=== PATIENT | male | born 1950 | race African-American/Black ===

== ENCOUNTER → 2016-03-31 | Outpatient (CLI) | payer BC ==
[~2016-03-31] MED LIST: HYDC25 PO; LISI40TA PO; METH2.5T PO; METO50TA16 PO; MULT-506 PO; POLY335040 PO; SIMV20TA2 PO; WARF10TA PO; WARF2.5T8 PO; [UNRECOGNIZED DRUG - CODE] PO
--- NOTE | 2016-03-31 11:26 | DIAGNOSTIC IMAGING REPORT ---
ABDOMINAL AORTIC ULTRASOUND CLINICAL HISTORY: Aortic aneurysm. COMPARISON STUDY: 11/16/2012 FINDINGS: The proximal aorta measures 26 x 26 mm. The midabdominal aorta measures 19 x 19 mm. There is a fusiform aneurysm of the infrarenal abdominal aorta measuring 3.3 cm, x 3.1 cm in maximal diameter. There is mild aneurysmal dilatation of the right common iliac artery which measures 21 mm in diameter. The left common iliac artery measures 14 mm in diameter. IMPRESSION: Stable infrarenal abdominal aortic aneurysm measuring 33 mm in maximal diameter. Stable right common iliac artery aneurysm measuring 21 mm in diameter. Electronically signed by: Chago Martin M.D. 03/31/2016 11:24 AM Dictated Date/Time: 03/31/2016 11:21 AM
== END | disposition home or self-care (01) ==
LOC: C.ULTR 10:23
DX: I71.4 Abdominal aortic aneurysm, without rupture (principal); I72.3 Aneurysm of iliac artery

== ENCOUNTER → 2016-06-27 | Outpatient (CLI) | payer BC ==
[2016-06-27 09:42] LABS: BASO % 0.3 %; BASO ABS # 0.02 K/uL (0-0.2); COMPLETE YES; EOS % 4.6 %; HEMATOCRIT 38.4 % (42-52); IG% 0.1 %; LYMPH % 42.7 %; LYMPH ABS # 2.85 K/uL (1.2-3.4); MEAN CELL VOLUME 91.9 fL (80-100); MEAN CORPUSCULAR HEMOGLOBIN 31.6 pg (25-34); MEAN CORPUSCULAR HGB CONC 34.4 g/dl (32-36); MEAN PLATELET VOLUME 10.4 fL (7.4-10.4); MONO % 7.2 %; NEUT % 45.1 %; PLATELET COUNT 177 K/uL (130-400); RED BLOOD COUNT 4.18 M/uL (4.7-6.1); WHITE BLOOD COUNT 6.68 K/uL (4.8-10.8)
[2016-06-27 10:19] LABS: ALT/SGPT 28 U/L (12-78); AST/SGOT 18 U/L (15-37); BLOOD UREA NITROGEN 16 mg/dl (7-18); BUN/CREATININE RATIO 16.4 (10-20); CARBON DIOXIDE 31 mmol/L (21-32); CHLORIDE 107 mmol/L (98-107); GLUCOSE 94 mg/dl (70-99); SODIUM 143 mmol/L (136-145)
[2016-06-27 10:24] LABS: CHOLESTEROL 139 mg/dl (0-200); CHOLESTEROL/HDL RATIO 2.4; HDL CHOLESTEROL 57 mg/dl; LDL CHOLESTEROL CALCULATED 59 mg/dl; TRIGLYCERIDES 116 mg/dl (0-150); VERY LOW DENSITY LIPOPROT CALC 23 mg/dl
== END | disposition home or self-care (01) ==
LOC: C.LAB 08:02
DX: M19.90 Unspecified osteoarthritis, unspecified site (principal); E78.5 Hyperlipidemia, unspecified

== ENCOUNTER → 2016-12-18 | Outpatient (CLI) | payer BC ==
[2016-12-18 16:16] LABS: MEAN CELL VOLUME 92.6 fL (80-100); MEAN CORPUSCULAR HEMOGLOBIN 29.5 pg (25-34); MEAN CORPUSCULAR HGB CONC 31.8 g/dl (32-36); MEAN PLATELET VOLUME 10.1 fL (7.4-10.4); PLATELET COUNT 169 K/uL (130-400); RED BLOOD COUNT 4.21 M/uL (4.7-6.1); WHITE BLOOD COUNT 7.03 K/uL (4.8-10.8)
[2016-12-18 16:30] LABS: ALT/SGPT 14 U/L (12-78); AST/SGOT 15 U/L (15-37); BLOOD UREA NITROGEN 14 mg/dl (7-18); BUN/CREATININE RATIO 12.6 (10-20); CALCIUM 8.9 mg/dl (8.5-10.1); CARBON DIOXIDE 27 mmol/L (21-32); CHLORIDE 106 mmol/L (98-107); GLUCOSE 81 mg/dl (70-99); POTASSIUM 3.9 mmol/L (3.5-5.1); SODIUM 141 mmol/L (136-145)
[2016-12-18 19:58] LABS: COMPLETE YES; ECHINOCYTES 1+; EOSINOPHIL % 3.5 %; LYMPH ABS # 2.99 K/uL (1.2-3.4); LYMPHOCYTE % 42.5 %; VARIANT LYM ABS # 1.65 K/uL; VARIANT LYMPHOCYTE % 23.5 %
[2016-12-19 07:11] LABS: ESTIMATED AVERAGE GLUCOSE 128 mg/dl; HA1C FLAG Normal (Normal)
== END | disposition home or self-care (01) ==
LOC: C.LAB 14:08
DX: E78.5 Hyperlipidemia, unspecified (principal); M19.90 Unspecified osteoarthritis, unspecified site; R73.02 Impaired glucose tolerance (oral); Z51.81 Encounter for therapeutic drug level monitoring; Z79.01 Long term (current) use of anticoagulants; Z86.73 Personal history of transient ischemic attack (TIA), and cerebral infarction without residual deficits

== ENCOUNTER → 2016-12-22 | Outpatient (CLI) | payer BC ==
--- NOTE | 2016-12-22 16:26 | ECHOCARDIOGRAM REPORT ---
*NOTICE TO RECEIVING DEMOCRAT AGENCY This information is strictly Confidential and protected under [place] law. [place] law prohibits you from making any further disclosure of this information unless further disclosure is expressly permitted by the written consent of the person to whom it pertains or is authorized by law. A general authorization for the release of medical or other information is not sufficient for this purpose. Hospital accepts no responsibility if the information is made available to any other person, INCLUDING THE PATIENT. Interpretation Summary * Name: MEERA SMILEY Study Date: 12/22/2016 01:13 PM BP: 127/78 mmHg * Patient Location: [facility] HR: 57 * : 1950 (M/d/yyyy) Gender: Male Height: 72 in * Age: 66 yrs Ethnicity: AA Weight: 168 lb * Ordering Physician: Walker Boo * Referring Physician: Walker Boo D.O. * Performed By: Joo Barron RCS * * Reason For Study: CAD, Dialated Thoracic Aorta, Mitral Regurge * BSA: 2.0 m2 * Normal biventricular systolic function. * Trace aortic and mitral regurgitation. * Mild tricuspid regurgitation. * Normal estimated right ventricular systolic pressure. * Mild aortic root and ascending aortic dilatation. * -- Conclusions -- * Aortic valve sclerosis mild, without significant aortic valvular stenosis. Procedure Details * A complete two-dimensional transthoracic echocardiogram was performed (2D, M-mode, Doppler and color flow Doppler). Left Ventricle * The left ventricle is normal in size. * There is normal left ventricular wall thickness. * Ejection Fraction = 60-65%. * The left ventricular wall motion is normal. Right Ventricle * The right ventricle is normal in size and function. Atria * The left atrial size is normal. * Right atrial size is normal. * No ASD detected; PFO is not assessed. Mitral Valve * There is mild mitral annular calcification. * There is no mitral valve stenosis. * There is trace mitral regurgitation. Tricuspid Valve * The tricuspid valve is normal. * There is no tricuspid stenosis. * There is mild tricuspid regurgitation. * Right ventricular systolic pressure is normal. Aortic Valve * The aortic valve is trileaflet. * The aortic valve opens well. * Aortic valve sclerosis mild, without significant aortic valvular stenosis. * Trace aortic regurgitation. Pulmonic Valve * The pulmonic valve is not well seen, but is grossly normal. * There is no pulmonic valvular stenosis. * There is no pulmonic valvular regurgitation. Great Vessels * Mild aortic root dilatation. * Mildly dilated ascending aorta. Pericardium/Pleural * There is no pericardial effusion. Great Vessels * Normal inferior vena cava diameter and respiratory variation suggests normal central venous pressure. MMode 2D Measurements and Calculations IVSd 1.0 cm IVSs 1.2 cm LVIDd 4.2 cm LVIDs 2.7 cm LVPWd 0.94 cm LVPWs 1.2 cm IVS/LVPW 1.1 FS 35.4 % EDV(Teich) 77.5 ml ESV(Teich) 26.9 ml EF(Teich) 65.3 % EDV(cubed) 72.9 ml ESV(cubed) 19.6 ml EF(cubed) 73.1 % % IVS thick 10.8 % % LVPW thick 28.8 % LV mass(C)d 134.4 grams LV mass(C)dI 67.9 grams/m\S\2 LV mass(C)s 92.3 grams LV mass(C)sI 46.6 grams/m\S\2 SV(Teich) 50.6 ml SI(Teich) 25.6 ml/m\S\2 SV(cubed) 53.3 ml SI(cubed) 26.9 ml/m\S\2 Ao root diam 4.1 cm Ao root area 13.2 cm\S\2 ACS 1.4 cm LA dimension 3.3 cm asc Aorta Diam 3.7 cm LA/Ao 0.82 EDV(MOD-sp4) 131.5 ml ESV(MOD-sp4) 56.0 ml EF(MOD-sp4) 57.4 % EDV(MOD-sp2) 156.7 ml ESV(MOD-sp2) 78.6 ml EF(MOD-sp2) 49.8 % SV(MOD-sp4) 75.5 ml SI(MOD-sp4) 38.2 ml/m\S\2 SV(MOD-sp2) 78.1 ml SI(MOD-sp2) 39.5 ml/m\S\2 Doppler Measurements and Calculations MV E max arminda 76.8 cm/sec MV A max arminda 61.6 cm/sec MV E/A 1.2 MV P1/2t max arminda 75.4 cm/sec MV P1/2t 93.3 msec MVA(P1/2t) 2.4 cm\S\2 MV dec slope 236.7 cm/sec\S\2 MV dec time 0.20 sec Ao V2 max 117.6 cm/sec Ao max PG 5.5 mmHg Ao max PG (full) 1.7 mmHg LV V1 max PG 3.8 mmHg LV V1 max 97.6 cm/sec PA V2 max 81.7 cm/sec PA max PG 2.7 mmHg TR max arminda 221.7 cm/sec
== END | disposition home or self-care (01) ==
LOC: C.CPL 12:39
DX: I25.10 Atherosclerotic heart disease of native coronary artery without angina pectoris (principal); I34.0 Nonrheumatic mitral (valve) insufficiency; I71.2 Thoracic aortic aneurysm, without rupture

== ENCOUNTER 2023-06-17 07:37 | Inpatient (IN) ==
--- NOTE | 2023-05-26 10:15 | PAT Medication Instructions ---
Medication Instructions Date of Service May 26, 2023 Home Medications Medication Instructions Recorded morphine 15 mg immediate release 15 mg PO Q4H #120 tabs 04/15/23 tablet warfarin 10 mg tablet See Rx Instructions PO UD #90 tabs 04/20/23 warfarin 2.5 mg tablet See Rx Instructions PO UD #30 tabs 04/20/23 atorvastatin 20 mg tablet 20 mg PO DAILY #90 tabs 05/08/23 lisinopril 20 mg tablet 20 mg PO DAILY #90 tabs 05/08/23 metoprolol tartrate 50 mg tablet 50 mg PO DAILY #90 tabs 05/08/23 (Lopressor) polyethylene glycol 3350 17 gram oral powder packet (Miralax) 17 gm PO 3XWK Medical Marijuana (CBD) 1 dose inhalation TID PRN diclofenac sodium 1 % topical gel (Voltaren) 2 gm topical QID [id number]-kd-mqoad 300 mcg-K 60 mcg-lycop 600 mcg-lutein 300 mcg tablet (Centrum Silver Men) 1 tab PO DAILY inulin 2 gram chewable tablet (Fiber Gummies) 2 g PO DAILY morphine 15 mg immediate release tablet 15 mg PO Q4H warfarin 10 mg tablet See Rx Instructions PO UD warfarin 2.5 mg tablet See Rx Instructions PO UD linaclotide 72 mcg capsule (Linzess) See Rx Instructions PO HS atorvastatin 20 mg tablet 20 mg PO DAILY lisinopril 20 mg tablet 20 mg PO DAILY metoprolol tartrate 50 mg tablet (Lopressor) 50 mg PO DAILY Continue as directed atorvastatin 20 mg tablet 20 mg PO DAILY metoprolol tartrate 50 mg tablet (Lopressor) 50 mg PO DAILY ASK your prescriber and surgeon warfarin 10 mg tablet See Rx Instructions PO UD warfarin 2.5 mg tablet See Rx Instructions PO UD STOP taking 24 hours before surgery diclofenac sodium 1 % topical gel (Voltaren) 2 gm topical QID DO NOT take the morning of surgery polyethylene glycol 3350 17 gram oral powder packet (Miralax) 17 gm PO 3XWK Medical Marijuana (CBD) 1 dose inhalation TID PRN khwfqkun-qc-ubjth 300 mcg-K 60 mcg-lycop 600 mcg-lutein 300 mcg tablet (Centrum Silver Men) 1 tab PO DAILY inulin 2 gram chewable tablet (Fiber Gummies) 2 g PO DAILY lisinopril 20 mg tablet 20 mg PO DAILY Take morning of surgery With a small sip of water, OTHERWISE NOTHING TO EAT OR DRINK AFTER MIDNIGHT: morphine 15 mg immediate release tablet 15 mg PO Q4H Take evening before surgery Medical Marijuana (CBD) 1 dose inhalation TID PRN(if needed) morphine 15 mg immediate release tablet 15 mg PO Q4H linaclotide 72 mcg capsule (Linzess) See Rx Instructions PO HS Other Notes If you have any questions please call us at [phone] or [phone] or [phone] or [phone]
--- NOTE | 2023-05-28 12:05 | Anesthesiology Consultation ---
Date of Service May 28, 2023 Assessment & Plan (1) Encounter for pre-operative examination: Plan - check coags STAT am DOS. - Case discussed in detail with Dr. Cornelius who advised nothing additional needed prior to surgery from his standpoint. - cardiology office visit 01/05/23 [place]: "...Reported history myocardial infarction 1986. no evidence of wall motion abnormalities on most recent echo. Electrocardiogram without evidence of infarct. At this time he has no anginal or anginal equivalent symptoms. Stable exercise tolerance and stamina. LV ejection fraction is normal. No signs or symptoms of heart failure. Asymptomatic ventricular ectopy. Right bundle branch block and left anterior fascicular block. No symptoms suggestive of high-degree block or significant conduction abnormalities...Continue CAD risk factor modification. The patient is aware of the health risks associated with continued cigarette smoking...increase metoprolol tartrate to 50 mg b.i.d...Cardiology clinic follow-up in 1 year. If the patient develops any anginal or anginal equivalent symptoms would then proceed to repeat pharmacologic stress test. If any signs or symptoms of heart failure would perform repeat echocardiogram..." Chart Review Chart Review: Acceptable Risk for Surgery and Patient seen in Pre Admission Testing Teaching & Discussion Pre-Anesthesia Teaching/Discussion Notes: Instructed NPO after midnight before surgery, except medications with 15 cc of water. Medication instructions provided according to the PAT guidelines. History Surgery Operation Date: 06/17/23 12:30 Proposed Procedures p Percutaneous Endovascular Repair with Iliac Branch Device - José Miguel Watson MD Height/Weight Height: 5 ft 11.5 in Weight: 78.2 kg Allergies Allergy/AdvReac Type Severity Reaction Status Date / Time iodine Allergy Intermediate Hives/swell Verified 05/22/23 09:37 ing shellfish derived Allergy Intermediate Hives/swell Verified 05/22/23 09:37 ing carbamazepine Allergy Unknown unsure Verified 05/22/23 09:36 Medications Home Medications Medication Instructions Recorded Confirmed Last Taken polyethylene glycol 3350 17 gram 17 gm PO 3XWK 12/07/17 05/22/23 Unknown oral powder packet (Miralax) Medical Marijuana (CBD) 1 dose inhalation TID PRN pain 05/13/18 05/22/23 03/04/22 diclofenac sodium 1 % topical gel 2 gm topical QID 09/21/19 05/22/23 Unknown (Voltaren) akcxbagz-wc-foicr 300 mcg-K 60 1 tab PO DAILY 07/08/22 05/22/23 Unknown mcg-lycop 600 mcg-lutein 300 mcg tablet (Centrum Silver Men) inulin 2 gram chewable tablet 2 g PO DAILY 07/29/22 05/22/23 Unknown (Fiber Gummies) morphine 15 mg immediate release 15 mg PO Q4H #120 tabs 04/15/23 05/22/23 Unknown tablet warfarin 10 mg tablet See Rx Instructions PO UD #90 tabs 04/20/23 05/22/23 Unknown warfarin 2.5 mg tablet See Rx Instructions PO UD #30 tabs 04/20/23 05/22/23 Unknown linaclotide 72 mcg capsule See Rx Instructions PO HS 05/07/23 05/22/23 Unknown (Linzess) atorvastatin 20 mg tablet 20 mg PO DAILY #90 tabs 05/08/23 05/22/23 Unknown lisinopril 20 mg tablet 20 mg PO DAILY #90 tabs 05/08/23 05/22/23 Unknown metoprolol tartrate 50 mg tablet 50 mg PO DAILY #90 tabs 05/08/23 05/22/23 Unknown (Lopressor) Past Medical History Medical History (Updated 05/28/23 @ 14:20 by Julia Dewitt PA-C) AAA (abdominal aortic aneurysm) without rupture 5.5 x 5.1 cm Affective disorder Arthritis Chronic pain Coronary artery disease follows with [place] cardiology 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 Exercise / Class Metabolic Activity II 4-5 Yardwork/Stairs/Walk up hill (denies chest discomfort or shortness of breath with 1 FOS) Past Family History Family History Aunt Breast cancer x2-maternal Mother Hypertension Myocardial infarction Other No family history of adverse response to anesthesia Denies family history of Ovarian cancer Prostate cancer Diabetes Lung cancer Colorectal cancer Stroke Past Surgical History Surgical History (Updated 05/28/23 @ 14:19 by Julia Dewitt PA-C) History of back surgery lumbar fusion History of colonoscopy History of esophagogastroduodenoscopy (EGD) History of tooth extraction History of total knee replacement RT Past Anesthesia History No Hx of Anesthesia Complications and No Family Hx of Anesthesia Complications History of PONV No Hx of PONV and No Hx of Motion Sickness Social History Smoking Status: Current every day smoker tobacco type: cigarettes Smoking cigarettes per day: 8 CIG DAILY>ADVISED Do You Dip or Chew Tobacco: No Hx Alcohol Use: No Hx Substance Use: Yes (ONLY MEDICAL MARIJUANA- advised) substance use type: marijuana Last Used Substance Other:: 05/21/23 Review of Systems Patient denies chest pain, shortness of breath, dyspnea on exertion, snoring, witnessed apneas, reflux, fever, chills, cough, wheezing, or palpitations. Physical Exam Vital Signs Vitals BP 117/72 P 74 TEMP 98.2 SP02 97% on RA RESP 18 Physical Patient resting comfortably in chair in no acute distress, alert and oriented, responding appropriately throughout visit Full cervical extension range of motion without pain TMD 3.5 finger breadths Mallampati Score 2 Dentition: intact, denies chipped or loose teeth, caps/crowns, implants or bridges Lungs: normal respiratory effort. Good air movement, clear throughout to auscultation, no adventitious breath sounds Cardiac: regular rate and rhythm, no murmurs noted Carotid arteries: negative bruit bilat Lab Results Anesthesia Preop Results Results Anesthesia Widget: WBC 5.05 K/ul (4.8-10.8) 05/28/23 Hgb 13.4 g/dl (14.0-18.0) L 05/28/23 Hct 40.1 % (42.0-52.0) L 05/28/23 Plt 100 K/uL (130-400) L 05/28/23 Na 141 mmol/L (136-145) 05/07/23 K 3.8 mmol/L (3.5-5.1) 05/07/23 Cl 108 mmol/L (98-107) H 05/07/23 CO2 28 mmol/L (21-32) 05/07/23 BUN 16 mg/dl (6-23) 05/07/23 Creat 1.14 mg/dl (0.6-1.4) 05/07/23 Glucose Level 91 mg/dl (70-99(Fasting)) 05/07/23 PT 32.4 Seconds (9.0-12.0) H 05/28/23 PTT 46 Seconds (21-31) H 05/28/23 INR 3.2 (0.9-1.1) H 05/28/23 TSH 2.009 uIu/ml (0.300-4.500) 05/07/23 HA1c 6.3 % (4.5-5.6) H 05/07/23 Blood Type A Positive 05/28/23 Antibody Screen NEGATIVE 05/28/23 Testing Laboratory Results Coags discussed with Dr. Cornelius who advised relaying them to anticoagulation clinic for continuity of care and otherwise checking am DOS as standard procedure. Daylin Francis confirmed review of results and that their department will follow-up with patient. Electrocardiogram Date: 05/28/23 Sinus rhythm with frequent PVCs, rate 64 bpm Left axis deviation Incomplete RBBB T wave inversion in inferior leads, consider ischemia Inferior T wave changes also demonstrated on 12/04/22 EKG Echocardiogram Date: 12/04/21 EF 60-65% No LV regional wall motion abnormalities noted Mild cLVH Mild mitral regurgitation Aortic root and proximal ascending aorta are normal sized Other Testing Abdomen pelvis CTA 05/06/23 1. A 5.5 x 5.1 cm infrarenal abdominal aortic aneurysm as described above. 2. This extends into the right common iliac artery aneurysm which measures 4 cm in diameter. 3. Additional findings as described above. Low dose lung CT 12/08/22 1. No change in several small pulmonary nodules, measuring up to 5 mm, since CT of February 03, 2022. These are likely benign and can be assessed on routine annual screening CT. 2. No new pulmonary nodules. 3. Emphysema. Head and neck CTA 04/19/21 1. No acute intracranial hemorrhage, evidence of acute territorial infarction, or other acute intracranial disease process. 2. No occlusion, hemodynamically significant stenosis, aneurysm, dissection, or arteriovenous malformation in the major intracranial arteries. 3. No occlusion, hemodynamically significant stenosis, or dissection in the major cervical arteries.
--- NOTE | 2023-06-16 12:26 | History & Physical Report ---
Date of Service June 16, 2023 Assessment & Plan (1) Abdominal aortic aneurysm: Plan: Patient is admitted for endovascular repair of his abdominal aortic and iliac artery aneurysms. I have discussed the risks options and benefits of the procedure with the patient. The patient understands the risks options and benefits and agrees to the procedure. History of Present Illness Chief Complaint: AAA and iliac artery aneurysm Primary Care Provider: ROQUE Bee Mr. Schofield is a 73-year-old gentleman who we have seen in the past for abdominal aortic aneurysm as well as iliac aneurysms. He is doing well at this time he is ambulating without any claudication. He has no symptoms of cerebrovascular sufficiency he has no abdominal complaints. His ultrasound showed a significant increase in size. 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 They are amenable to endoleak vascular repair Allergies Allergy/AdvReac Type Severity Reaction Status Date / Time iodine Allergy Intermediate Hives/swell Verified 05/22/23 09:37 ing shellfish derived Allergy Intermediate Hives/swell Verified 05/22/23 09:37 ing carbamazepine Allergy Unknown unsure Verified 05/22/23 09:36 Home Medications Medication Instructions Recorded Confirmed Type polyethylene glycol 3350 17 gram 17 gm PO 3XWK 12/07/17 06/04/23 History oral powder packet (Miralax) Medical Marijuana (CBD) 1 dose inhalation TID PRN pain 05/13/18 06/04/23 History diclofenac sodium 1 % topical gel 2 gm topical QID 09/21/19 06/04/23 History (Voltaren) mwfbisqv-dg-qjyfh 300 mcg-K 60 1 tab PO DAILY 07/08/22 06/04/23 History mcg-lycop 600 mcg-lutein 300 mcg tablet (Centrum Silver Men) inulin 2 gram chewable tablet 2 g PO DAILY 07/29/22 06/04/23 History (Fiber Gummies) morphine 15 mg immediate release 15 mg PO Q4H #120 tabs 04/15/23 06/04/23 Rx tablet warfarin 10 mg tablet See Rx Instructions PO UD #90 tabs 04/20/23 06/04/23 Rx warfarin 2.5 mg tablet See Rx Instructions PO UD #30 tabs 04/20/23 06/04/23 Rx linaclotide 72 mcg capsule See Rx Instructions PO HS 05/07/23 06/04/23 History (Linzess) atorvastatin 20 mg tablet 20 mg PO DAILY #90 tabs 05/08/23 06/04/23 Rx lisinopril 20 mg tablet 20 mg PO DAILY #90 tabs 05/08/23 06/04/23 Rx metoprolol tartrate 50 mg tablet 50 mg PO DAILY #90 tabs 05/08/23 06/04/23 Rx (Lopressor) Past Med/Surg History Medical History Pre-diabetes History of colon polyps Arthritis Medical marijuana use Myocardial Infarction 1989>no intervention per pt Hyperlipidemia History of adenomatous polyp of colon Affective disorder Opioid dependence Chronic pain AAA (abdominal aortic aneurysm) without rupture 5.5 x 5.1 cm Tobacco dependence Hypertension controlled, stable per pt Coronary artery disease follows with [place] [facility] CVA (cerebral vascular accident) X 2 "MILD"> (denies residual effects Current use of roasterman anticoagulation Surgical History History of esophagogastroduodenoscopy (EGD) History of total knee replacement RT History of colonoscopy History of tooth extraction History of back surgery lumbar fusion Family History Aunt Breast cancer x2-maternal Mother Hypertension Myocardial infarction Other No family history of adverse response to anesthesia Denies family history of Ovarian cancer Prostate cancer Diabetes Lung cancer Colorectal cancer Stroke Social History Smoking Status: Current every day smoker Tobacco Type: Cigarettes Age Started Using Tobacco: 22; packs per day: 1; Cigarettes Per Day: 8 CIG DAILY>ADVISED; Second Hand Exposure: Yes (in the past); Do You Dip or Chew Tobacco: No; Tobacco Cessation Education Requested by Patient: No Hx Alcohol Use: No Hx Substance Use: Yes (ONLY MEDICAL MARIJUANA- advised) Last Used Substance Other:: 05/21/23 Preferred Language: Pashto Communication Ability: Effective Visual Impairment: Limited Hearing Ability: Normal 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: No Beliefs That Will Affect Care: None marital status: Current Living Situation: Spouse current occupational status: retired How many Children do You have: 2 Other Information That Helps Us Care for You: No Feels Safe at Home: Yes Safety Concerns: Feels Safe At This Time Childhood Exposure to Second-Hand Smoke: No caffeine: Yes Dental Care, Regularly: No Physical Activity Frequency: Daily Physical Activity Frequency Comment: walking Seatbelt Use: always Sunscreen Use: No Assistive Devices: Denture - Upper and Denture - Lower Review of Systems All systems reviewed & are unremarkable except as noted in HPI & below Physical Exam Constitutional: WD/WN, vitals as above Respiratory: normal respiratory effort, lungs clear to auscultation Cardiovascular: RRR, no murmur, no edema Vessels: normal peripheral pulses Extremities: normal capillary refill Gastrointestinal (Abdomen): normal bowel sounds, soft, nontender, no hepatosplenomegaly Percussion/Palpation: + abdominal aortic enlargement Neurologic: CN's II-XI intact bilaterally and moves all extremities Psychiatric: Orientation: alert and oriented x 3
[2023-06-17] MEDS: LACTATED RINGER'S 1,000 ML IV SCH (08:15)
[2023-06-17 08:50] LABS: INR 1.2 (0.9-1.1); Partial Thromboplastin Ratio 1.1; Partial Thromboplastin Time 30 Seconds (21-31); Prothrombin Time 12.8 Seconds (9.0-12.0)
[2023-06-17] MEDS ORDERED: ePHEDrine sulfate 50 MG/ML AMP IV PRN (09:25)
[2023-06-17] MEDS ORDERED: ATROPINE SULFATE 0.1 MG/ML 10ML SYR IV PRN (09:25)
[2023-06-17] MEDS ORDERED: ONDANSETRON INJ 2 MG/ML 2 ML VIAL IV PRN (09:25)
--- NOTE | 2023-06-17 10:02 | History & Physical Bridge Note ---
Date of Service June 17, 2023 History & Physical Bridge Note I have examined the patient, reviewed the History & Physical and in the interval since the performance of the History & Physical I have noted the following changes of clinical significance: no changes noted
[2023-06-17] MEDS ORDERED: fentaNYL citrate PF 100 MCG/2 ML VIAL ONE ×2 (10:24→11:26)
[2023-06-17] MEDS ORDERED: MIDAZOLAM HCL 1 MG/ML 2ML VIAL ONE (10:24)
[2023-06-17] MEDS ORDERED: VISIPAQUE IV PRN (10:41)
[2023-06-17] MEDS: HYDROCORTISONE SOD 100 MG in SYRINGE 0 ML IV STA (10:45)
[2023-06-17] MEDS: HYDROCORTISONE SOD SUCCINATE 100 MG/2 ML VIAL ONE (10:45)
[2023-06-17] MEDS: ceFAZolin 2000MG 2,000 MG/15 ML SYR IV SCH ×2 (11:00→18:44)
[2023-06-17] MEDS ORDERED: ONDANSETRON INJ 2 MG/ML 2 ML VIAL ONE ×2 (11:24→13:07)
[2023-06-17] MEDS ORDERED: PROPOFOL IV EMULSION 10 MG/ML 20 ML VIAL IV ONE (11:24)
[2023-06-17] MEDS ORDERED: LIDOCAINE 2% 2 ML VIAL/AMP(20MG/ML) INFIL ONE (11:24)
[2023-06-17] MEDS ORDERED: DEXAMETHASONE SOD INJ 4 MG/ML VIAL ONE (11:24)
[2023-06-17] MEDS ORDERED: NITROGLYCERIN/D5W 100 MCG/ML BTL ONE (11:24)
[2023-06-17] MEDS ORDERED: ROCURONIUM BROMIDE 10 MG/ML 5 ML VIAL IV ONE ×2 (11:24→12:11)
[2023-06-17] MEDS ORDERED: PHENYLEPHRINE HCL 25 MG/250 ML NSS IV ONE (11:56)
[2023-06-17] MEDS ORDERED: HEPARIN SOD (PORCINE) 1000 UNIT/ML ONE (11:56)
[2023-06-17] MEDS ORDERED: SUGAMMADEX SODIUM 200 MG/2 ML VIAL IV ONE (12:55)
[2023-06-17] MEDS: LIDOCAINE 1% LOCAL 20 ML VIAL ONE (14:14)
[2023-06-17] MEDS: BUPIVACAINE/EPINEPHRINE 0.5% MPF 1:200,000 30 ML VIAL ONE (14:15)
[2023-06-17] MEDS: ARISTA ABSORBABLE HEMOSTAT 3GM TOP ONE (14:17)
[2023-06-17] MEDS: VISIPAQUE IV PRN (14:18)
--- NOTE | 2023-06-17 14:27 | Post Operative Brief Note ---
Immediate Post Op Note v1 Date of Surgery June 17, 2023 Pre & Post Diagnosis Operation Date: 06/17/23 10:10 Pre-Op Diagnosis: Abdominal Aortic Aneurysm, Iliac Artery Aneurysm Post-Op Diagnosis: Abdominal Aortic Aneurysm, Iliac Artery Aneurysm I identified the patient and participated in the time-out.: Yes Procedure Operation Date: 06/17/23 10:10 Actual Procedures p Percutaneous Endovascular Repair of Abdominal Aortic Aneurysm and Right Iliac Branch Artery Device, Ultrasound Localization of Bilateral Femoral Arteries, Mechanical Closure of Bilateral Femoral Arteries(Bilateral) - José Miguel Wtason MD Surgeon José Miguel Watson MD Engineering Operations Leader Flako,PAC Estimated Blood Loss 100 Findings Consistent with Post-Op Diagnosis Anesthesia Type General Complications none Disposition Accompanied Patient To Recovery: No Disposition: Recovery Room
[2023-06-17] MEDS: fentaNYL citrate PF 100 MCG/2 ML VIAL IV PRN (14:46)
[2023-06-17 15:16] LABS: Hematocrit (blood only) 35.9 % (42.0-52.0); Hemoglobin 12.3 g/dl (14.0-18.0)
--- NOTE | 2023-06-17 15:27 | Anesthesiology Progress Note ---
Date of Service June 17, 2023 Anesthesia Post Procedure Vital Signs Vital Signs: Temp Pulse Pulse Resp BP BP BP 06/17/23 15:15 72 14 137/78 151/72 H 06/17/23 15:05 83 20 152/90 H 164/78 H 06/17/23 14:55 72 18 150/90 H 194/93 H 06/17/23 14:45 78 17 151/94 H 174/94 H 06/17/23 14:35 97.7 F 78 15 131/92 142/86 H 06/17/23 08:05 97.9 F 76 20 145/92 H 145/103 H Pulse Ox O2 Del Method O2 Flow Rate 06/17/23 15:15 96 Nasal Cannula 2 06/17/23 15:05 95 Nasal Cannula 2 06/17/23 14:55 99 Oxymask 10 06/17/23 14:45 99 Oxymask 10 06/17/23 14:35 95 Oxymask 10 06/17/23 08:05 98 Room Air Transfer of Care Handoff Completed per policy Notes Mental Status: alert / awake / arousable and participated in evaluation Patient Amnestic to Procedure: Yes Nausea / Vomiting: adequately controlled Pain: adequately controlled Airway Patency, RR, SpO2: stable & adequate BP & HR: stable & adequate Hydration State: stable & adequate Anesthetic Complications: no major complications apparent and Pt Satisfied with anesthetic care
[2023-06-17] MEDS: HYDROmorphone INJ 0.5 MG/0.5 ML SYR IV STA ×2 (16:12→21:21)
--- NOTE | 2023-06-17 16:31 | Critical Care Consultation ---
Date of Consultation June 17, 2023 Assessment & Plan (1) Abdominal aortic aneurysm: (2) Hip pain: (3) Opioid dependence: (4) Tobacco dependence: (5) Hyperlipidemia: (6) Myocardial infarct, old: (7) CVA (cerebral vascular accident): (8) Chronic pain: (9) Hypertension: Plan Reason Critically Ill: 73-year-old male with a significant past medical history of hypertension, hyperlipidemia, coronary disease, tobacco abuse, AAA, and chronic narcotic use who presents postoperatively after successful PVAR procedure. NEURO - * CAM ICU: NEGATIVE * PAIN: * Patient presents to the ICU in significant discomfort with complaints of pain to the RIGHT buttock and lateral aspect of the leg. Pulses are palpable distally. No discoloration noted. Pain is reproducible nature. * Patient with substantial opioid dependence at home. Will treat the patient with intravenous Dilaudid for now. Will see if we can get his pain under better control. Consideration for antipsychotics, and/or Precedex in the event that his agitation is refractory to adequate pain control. CARDIAC/VASCULAR - * Status post PVAR: * Continue with postoperative recommendations per vascular surgery. * Pain control as above. * Monitor closely for signs/symptoms of bleeding status post vascular intervention. * Hypertension/hyperlipidemia: * Can restart home medications when clinically appropriate. * Blood pressure parameters per vascular surgery recommendation. * EKG: Outpatient ABG shows episodes of bigeminy and PACs. Consistent with telemetry findings today and monitor. * Monitor on telemetry. RESPIRATORY - * Saturating well on room air. --Current smoker >[id number] smoking history GI/NUTRITION - * Progress diet as tolerated. RENAL/LYTES - * Will recheck electrolytes. * IVF: D5W one half NS at 125 an hour per vascular. This can be changed when the patient is awake and tolerating p.o. - * Weiss in place - Strict I&Os. ENDO - * DMII * BSGs per unit protocol. ISS --> gtt per unit policy. HEME - * Monitor for s/s bleeding s/p vascular intervention. * Will obtain H&H and PRP postoperatively. ID - * Prophylactic antibiotics per vascular. LINES/IV ACCESS - * PIVs x2 * Weiss DVT PROPHYLAXIS - * Per vascular surgery. * SCDs Supervising Physician Co-Signing Physician Notes I saw and evaluated the patient with David Tran PA-C, and agree with findings and plan as documented in the note. 73-year-old male came to the hospital for PVAR. He was sent to the ICU for post of monitoring He does have significant history of opioid use for chronic low back pain. He is active smoker smoking approximately 6 cigarettes a day Patient's and daughter were in the room at the time of examination Patient systolic blood pressure was in the 160s with MAP in the low 100s. He had gotten 0.5 mg of Dilaudid prior to me being seen. He has been complaining of pain in the right quadriceps and right buttock. On physical exam I was not able to find any bruising. It was tender to touch. Denied any chest pain. He was saturating 96% on 2 L nasal cannula. Denied any chest pain, no abdominal pain Constitutional: No acute distress HEENT: EOMI, PERRLA Respiratory system: Good air entry bilaterally, no wheeze, no rhonchi, mild crackles bilaterally CVS: S1-S2 positive, no murmurs or gallops Abdomen: Soft, nontender, nondistended, positive bowel sounds x4 Extremities: +2 pulses bilaterally radialis/ dorsalis pedis, no cyanosis, no edema Neuro: Awake alert oriented to self and place Psych: Normal mood and affect G/U: Positive Weiss Musculoskeletal: Right buttock, right hamstring tenderness, no bruising --Prophylaxis VTE: IPC, on warfarin at home GI: None Lines: Right radial, peripheral Diet: Cardiac Plan: Patient has history of cramping even at home. He has significant issues with his lower back and has been taking chronic opioids. He does understand and answers all the questions appropriately. He is reasonable. I do not think he is delirious right now. He does seem to be in pain and pain medications will be given to the patient to control. Given the significant opioid use it at home. Anesthesia consult might be needed for pain management In the meantime I will give him magnesium, will order magnesium and phosphorus to be done in the serum. Tylenol 1000 mg every 8 hours as needed for pain Continue to check for pulses in the lower extremities Neurochecks Monitor H&H I have personally spent 42 minutes of critical care time in the direct management of this patient. This is a life/limb threatening event. This includes time spent evaluating patient, direct bedside care, chart review, placing orders, interpretation of diagnostic studies, discussion with consultants, patient, and family members, as well as other required patient management activities. This time is exclusive of all separately billable procedures, and teaching time and separate from and in addition to any other critical care service time. Thank you for allowing us to participate in the care of this patient. Please refer to my attending physician's documentation for any further recommendations. History of Present Illness Reason for Consultation: s/p PVAR Requesting Physician: Dr. Watson Attending Physician: José Miguel Watson MD History of Present Illness Patient is a 73-year-old male with a significant past medical history of coronary artery disease, hypertension, AAA, opioid dependence, tobacco dependence, hyperlipidemia, and an irregular heartbeat who underwent PVAR today. Procedure was noted to be relatively uneventful with the 100 mL EBL. Patient was noted to have postoperative pain and some degree of agitation and movement after the surgery. He was provided doses of Precedex to help facilitate decrease in his discomfort. Upon arrival in the ICU, the patient is awake, alert, and oriented. He complains of pain to the posterior aspect of the RIGHT- sided leg. He is unable to provide significant information other than year, date of , location, and reason for visit today secondary to his level of discomfort. Allergies Allergy/AdvReac Type Severity Reaction Status Date / Time iodine Allergy Intermediate Hives/swell Verified 06/17/23 08:13 ing shellfish derived Allergy Intermediate Hives/swell Verified 06/17/23 08:13 ing carbamazepine Allergy Unknown unsure Verified 06/17/23 08:13 Home Medications Medication Instructions Recorded Confirmed Type polyethylene glycol 3350 17 gram 17 gm PO 3XWK 12/07/17 06/17/23 History oral powder packet (Miralax) Medical Marijuana (CBD) 1 dose inhalation TID PRN pain 05/13/18 06/17/23 History diclofenac sodium 1 % topical gel 2 gm topical QID 09/21/19 06/17/23 History (Voltaren) [id number] 300 mcg-K 60 1 tab PO DAILY 07/08/22 06/17/23 History mcg-lycop 600 mcg-lutein 300 mcg tablet (Centrum Silver Men) inulin 2 gram chewable tablet 2 g PO DAILY 07/29/22 06/17/23 History (Fiber Gummies) morphine 15 mg immediate release 15 mg PO Q4H #120 tabs 01/24/24 03/27/24 Rx tablet warfarin 10 mg tablet See Rx Instructions PO UD #90 tabs 04/20/23 06/17/23 Rx warfarin 2.5 mg tablet See Rx Instructions PO UD #30 tabs 04/20/23 06/17/23 Rx linaclotide 72 mcg capsule See Rx Instructions PO HS 05/07/23 06/17/23 History (Linzess) atorvastatin 20 mg tablet 20 mg PO DAILY #90 tabs 05/08/23 06/17/23 Rx lisinopril 20 mg tablet 20 mg PO DAILY #90 tabs 05/08/23 06/17/23 Rx metoprolol tartrate 50 mg tablet 50 mg PO DAILY #90 tabs 05/08/23 06/17/23 Rx (Lopressor) Patient History Medical History Pre-diabetes History of colon polyps Arthritis Medical marijuana use Myocardial Infarction 1989>no intervention per pt Hyperlipidemia History of adenomatous polyp of colon Affective disorder Opioid dependence Chronic pain AAA (abdominal aortic aneurysm) without rupture 5.5 x 5.1 cm Tobacco dependence Hypertension controlled, stable per pt Coronary artery disease follows with [facility] CVA (cerebral vascular accident) X 2 "MILD"> (denies residual effects Current use of joint terminal attack controller anticoagulation Surgical History History of esophagogastroduodenoscopy (EGD) History of total knee replacement RT History of colonoscopy History of tooth extraction History of back surgery lumbar fusion Family History Aunt Breast cancer x2-maternal Mother Hypertension Myocardial infarction Other No family history of adverse response to anesthesia Denies family history of Ovarian cancer Prostate cancer Diabetes Lung cancer Colorectal cancer Stroke Social History Smoking Status: Current every day smoker Tobacco Type: Cigarettes Age Started Using Tobacco: 22; packs per day: 1; Cigarettes Per Day: 8 CIG DAILY>ADVISED; Second Hand Exposure: Yes (in the past); Do You Dip or Chew Tobacco: No; Tobacco Cessation Education Requested by Patient: No Hx Alcohol Use: No Hx Substance Use: Yes (ONLY MEDICAL MARIJUANA- advised) Last Used Substance Other:: 05/21/23 Preferred Language: Kazakh Communication Ability: Effective Visual Impairment: Limited Hearing Ability: Normal 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 Beliefs That Will Affect Care: None marital status: Current Living Situation: Spouse current occupational status: retired How many Children do You have: 2 Other Information That Helps Us Care for You: No Feels Safe at Home: Yes Safety Concerns: Feels Safe At This Time Childhood Exposure to Second-Hand Smoke: No caffeine: Yes Dental Care, Regularly: No Physical Activity Frequency: Daily Physical Activity Frequency Comment: walking Seatbelt Use: always Sunscreen Use: No Assistive Devices: Denture - Upper and Denture - Lower Review of Systems Review of Systems: A complete 10 point review of systems was reviewed with the patient with pertinent positives and negatives as per history of present illness. All else were negative. Physical Exam Physical Exam: VITAL SIGNS - Vital signs and nursing notes were reviewed. GENERAL - 73-year-old male appearing his stated age who is in distress seconday to pain. SKIN - Bilateral groin sites clean, dry, and intact. HEAD - NC/AT. NECK - Neck with FROM. LUNGS - Chest wall symmetric without accessory muscle use, intercostals retractions, or central cyanosis. Normal vesicular breath sounds CTA B/L. No wheezes, rales, or rhonchi appreciated. CARDIAC - RRR with S1/S2. No murmur, rubs, or gallops appreciated. ABDOMEN - Abdominal contour flat without pulsations or visible masses. BS normoactive all four quadrants. No tenderness, palpable masses, hepatosplenomegaly, or ascites noted. EXTREMITIES - No clubbing or peripheral cyanosis. No pretibial edema present. +3/5 radial and dorsalis pedis pulses palpated throughout. Reproducible pain to the posterior lateral aspect of the RIGHT-sided hip and buttock area. NEUROLOGIC - Sensory intact to light touch throughout. PSYCH - A&Ox3 and cooperates fully with examiner. Extremely uncomfortable secondary to RIGHT-sided buttock and hip pain. Results & Data Results & Data Vital Signs (Past 12 Hours) Vital Signs Temp Pulse Pulse Resp BP BP BP 06/17/23 15:25 81 14 146/89 H 144/71 H 06/17/23 15:15 72 14 137/78 151/72 H 06/17/23 15:05 83 20 152/90 H 164/78 H 06/17/23 14:55 72 18 150/90 H 194/93 H 06/17/23 14:45 78 17 151/94 H 174/94 H 06/17/23 14:35 36.5 C 78 15 131/92 142/86 H 06/17/23 08:05 36.6 C 76 20 145/92 H 145/103 H Pulse Ox O2 Del Method O2 Flow Rate 06/17/23 15:25 97 Nasal Cannula 2 06/17/23 15:15 96 Nasal Cannula 2 06/17/23 15:05 95 Nasal Cannula 2 06/17/23 14:55 99 Oxymask 10 06/17/23 14:45 99 Oxymask 10 06/17/23 14:35 95 Oxymask 10 06/17/23 08:05 98 Room Air Coding Level of Care Code 84966 CRITICAL CARE 1ST 30-74M Diagnoses Abdominal aortic aneurysm I71.40 Hip pain M25.559 Opioid dependence F11.20 Tobacco dependence F17.200 Hyperlipidemia E78.5 Myocardial infarct, old I25.2 CVA (cerebral vascular accident) I63.9 Chronic pain G89.29 Hypertension I10
[2023-06-17] MEDS: D5W AND 1/2NSS 1,000 ML IV SCH (16:41)
[2023-06-17] MEDS: ACETAMINOPHEN 1,000 MG/100 ML VIAL IV PRN (16:42)
[2023-06-17] MEDS: POLYETHYLENE (MIRALAX) 17 GM PACK PO SCH (17:22)
[2023-06-17] MEDS: HYDROmorphone INJ 0.5 MG/0.5 ML SYR ONE (17:24)
[2023-06-17] MEDS: HYDROmorphone INJ 1 MG/ML SYRINGE IV STA (17:29)
[2023-06-17 17:40] LABS: Calcium 8.2 mg/dl (8.6-10.3); Creatinine Clr Calc Pharmacy 72.8 ml/min; Est GFR (African American) 92.7 ml/min; Magnesium 1.5 mg/dl (1.7-2.4); Phosphorus 3.4 mg/dl (2.5-4.9); Potassium 3.7 mmol/L (3.5-5.1)
[2023-06-17 17:50] LABS: Hematocrit (blood only) 35.7 % (42.0-52.0); Immature Granulocytes # (auto) 0.08 K/uL (0.01-0.20); Immature Granulocytes % (auto) 0.8 %; Lymphocytes % (auto) 9.3 %; Mean Corpuscular Hemoglobin 32.1 pg (25.0-34.0); Mean Corpuscular Hgb Conc 33.6 g/dL (32.0-36.0); Mean Corpuscular Volume 95.5 fL (80.0-100.0); Mean Platelet Volume 10.7 fL (9.4-12.4); Monocytes # (auto) 0.16 K/uL (0.11-0.59); Monocytes % (auto) 1.7 %; Neutrophils # (auto) 8.51 K/uL (1.40-6.50); Neutrophils % (auto) 88.2 %; Platelet Count 90 K/uL (130-400); RDW Coefficient of Variation 15.5 % (11.5-14.5); RDW Standard Deviation 54.6 fL (36.4-46.3); Red Blood Count 3.74 M/uL (4.70-6.10); White Blood Count 9.65 K/ul (4.8-10.8)
[2023-06-17] MEDS: DICLOFENAC SOD 1% GEL 100 GM TUBE EXT SCH (18:39)
[2023-06-17] MEDS: MoRPHine SULFATE IR 15 MG TAB (IMMEDIATE RELEASE) PO PRN (18:44)
[2023-06-17] MEDS: MAGNESIUM SULFATE / D5W 1 GM/100 ML BAG IV ONE (18:45)
[2023-06-17] MEDS: WARFARIN SOD 10 MG TAB PO SCH (18:49)
[2023-06-17 20:55] LABS: Hemoglobin 11.3 g/dl (14.0-18.0)
[2023-06-17] MEDS ORDERED: linaCLOtide 72 MCG CAPSULE PO SCH (21:00)
[2023-06-18] MEDS: ONDANSETRON INJ 2 MG/ML 2 ML VIAL IV PRN (01:16)
[2023-06-18 05:06] LABS: Basophils # (auto) 0.01 K/uL (0.00-0.20); Basophils % (auto) 0.1 %; Hematocrit (blood only) 31.6 % (42.0-52.0); Hemoglobin 10.8 g/dl (14.0-18.0); Immature Granulocytes # (auto) 0.07 K/uL (0.01-0.20); Immature Granulocytes % (auto) 0.6 %; Lymphocytes # (auto) 1.61 K/uL (1.20-3.40); Lymphocytes % (auto) 13.6 %; Mean Corpuscular Hemoglobin 32.3 pg (25.0-34.0); Mean Corpuscular Hgb Conc 34.2 g/dL (32.0-36.0); Mean Corpuscular Volume 94.6 fL (80.0-100.0); Monocytes # (auto) 0.89 K/uL (0.11-0.59); Monocytes % (auto) 7.5 %; Neutrophils # (auto) 9.22 K/uL (1.40-6.50); Neutrophils % (auto) 78.2 %; Platelet Count 84 K/uL (130-400); RDW Coefficient of Variation 15.4 % (11.5-14.5); RDW Standard Deviation 53.9 fL (36.4-46.3); Red Blood Count 3.34 M/uL (4.70-6.10)
[2023-06-18 05:20] LABS: BUN Creatinine Ratio 14.9 (10-20); Calcium 7.9 mg/dl (8.6-10.3); Est GFR (African American) 91.6 ml/min; Potassium 3.7 mmol/L (3.5-5.1)
[2023-06-18 07:19] LABS: Magnesium 1.8 mg/dl (1.7-2.4)
--- NOTE | 2023-06-18 07:32 | Critical Care Progress Note ---
Date of Service June 18, 2023 Assessment & Plan (1) Abdominal aortic aneurysm: (2) Hip pain: (3) Opioid dependence: (4) Tobacco dependence: (5) Hyperlipidemia: (6) Myocardial infarct, old: (7) CVA (cerebral vascular accident): (8) Chronic pain: (9) Hypertension: Plan Reason Critically Ill: 73-year-old male with a significant past medical history of hypertension, hyperlipidemia, coronary disease, tobacco abuse, AAA, and chronic narcotic use who presents postoperatively after successful PVAR procedure. NEURO - * CAM ICU: NEGATIVE * PAIN: * The right gluteal and hamstring pain has significantly improved CARDIAC/VASCULAR - * Status post PEVAR: * Continue with postoperative recommendations per vascular surgery. * Pain control as above. * Monitor closely for signs/symptoms of bleeding status post vascular intervention. * Hypertension/hyperlipidemia: * Can restart home medications when clinically appropriate. * Blood pressure parameters per vascular surgery recommendation. * EKG: Outpatient ABG shows episodes of bigeminy and PACs. Consistent with telemetry findings today and monitor. * Monitor on telemetry. RESPIRATORY - * Saturating well on room air. --Current smoker >70-[id number] smoking history GI/NUTRITION - * No current issues RENAL/LYTES - * Monitor BUNs/creatinine - * Weiss has been discontinued ENDO - * DMII * BSGs per unit protocol. ISS --> gtt per unit policy. HEME - * Monitor for s/s bleeding s/p vascular intervention. * Will obtain H&H and PRP postoperatively. ID - * Prophylactic antibiotics per vascular. --Prophylaxis VTE: Warfarin at home GI: None Lines: Right radial, peripheral Diet: Cardiac Plan: In/out: +1.1 L, urine output 1100 mL Potassium and magnesium will be replaced. The pain is well-controlled compared to yesterday. Hemodynamically stable Okay to discontinue arterial line. Weiss has already been discontinued Disposition as per vascular surgery Please note the above document was generated using voice recognition software. It may contain grammatical, syntax or spelling errors.Any formal questions or concerns about the content, text or information contained within the body of this dictation should be directly addressed to the provider for clarification. Admission and Anticipated Discharge Date Admission Date: June 17, 2023 Subjective Patient seen and examined at bedside. No acute distress, no adverse events overnight. Patient says that he is feeling much better now especially when it comes to the right buttock and the hamstring pain He was saturating well on room air. He finished his breakfast without any issues No nausea or vomiting No headache. Denies any abdominal pain Review of Systems 2 Review of Systems: All systems reviewed & are unremarkable except as noted in Subjective Physical Exam 2 Physical Exam: Constitutional: No acute distress HEENT: EOMI, PERRLA Respiratory system: Good air entry bilaterally, no wheeze, no rhonchi, mild crackles bilaterally CVS: S1-S2 positive, no murmurs or gallops Abdomen: Soft, nontender, nondistended, positive bowel sounds x4 Extremities: +2 pulses bilaterally radialis/ dorsalis pedis, no cyanosis, no edema Neuro: Awake alert oriented to self and place Psych: Normal mood and affect G/U: No Weiss Skin: no rashes, warm and dry Lymphatic: no cervical or axillary lymphadenopathy Results & Data Results & Data Vital Signs (Past 12 Hours) Vital Signs Temp Pulse Resp BP Pulse Ox 06/18/23 07:17 36.9 C 06/18/23 07:00 82 21 96 06/18/23 06:53 150/69 H 06/18/23 06:53 86 23 94 06/18/23 06:50 72 20 96 06/18/23 06:40 80 18 95 06/18/23 06:30 80 20 95 06/18/23 06:20 82 21 96 06/18/23 06:10 77 19 95 06/18/23 06:00 89 21 94 06/18/23 05:52 87 20 92 06/18/23 05:52 126/85 06/18/23 05:50 79 18 96 06/18/23 05:40 88 20 95 06/18/23 05:30 84 17 96 06/18/23 05:20 76 18 94 06/18/23 05:10 75 18 95 06/18/23 05:00 72 17 94 06/18/23 04:53 75 16 95 06/18/23 04:53 146/80 H 06/18/23 04:50 78 16 94 06/18/23 04:40 77 17 95 06/18/23 04:30 79 16 95 06/18/23 04:20 70 20 96 06/18/23 04:10 94 H 24 94 06/18/23 04:00 95 H 22 97 06/18/23 03:50 89 25 H 98 06/18/23 03:40 75 18 95 06/18/23 03:30 76 17 94 06/18/23 03:20 73 20 95 06/18/23 03:10 78 21 96 06/18/23 03:00 69 18 96 06/18/23 02:53 163/65 H 06/18/23 02:53 69 21 96 06/18/23 02:50 66 18 95 06/18/23 02:40 68 19 95 06/18/23 02:30 70 20 96 06/18/23 02:20 76 18 95 06/18/23 02:12 71 20 96 06/18/23 02:00 74 17 94 06/18/23 01:53 143/81 H 06/18/23 01:53 86 16 94 06/18/23 01:50 73 18 96 06/18/23 01:40 78 17 93 06/18/23 01:30 72 17 95 06/18/23 01:20 85 22 97 06/18/23 01:10 75 18 96 06/18/23 01:00 75 24 95 06/18/23 00:53 115 H 20 99 06/18/23 00:53 115/96 06/18/23 00:50 103 H 18 90 06/18/23 00:48 36.7 C 06/18/23 00:40 77 18 95 06/18/23 00:30 71 18 94 06/18/23 00:20 90 16 95 06/18/23 00:10 82 16 96 06/18/23 00:00 70 19 96 06/18/23 00:00 75 06/17/23 23:53 77 31 H 95 06/17/23 23:53 123/73 06/17/23 23:50 83 23 99 06/17/23 23:40 85 14 95 06/17/23 23:30 86 16 96 06/17/23 23:20 76 20 94 06/17/23 23:10 76 24 97 06/17/23 23:00 75 17 95 06/17/23 22:52 81 13 93 06/17/23 22:52 129/81 06/17/23 22:50 90 18 94 06/17/23 22:40 89 14 95 06/17/23 22:30 85 17 98 06/17/23 22:20 72 19 97 06/17/23 22:10 68 17 96 06/17/23 22:00 87 18 96 06/17/23 21:52 140/77 06/17/23 21:52 86 17 90 06/17/23 21:50 91 H 16 96 06/17/23 21:40 85 22 95 06/17/23 21:30 83 15 97 06/17/23 21:20 83 17 96 06/17/23 21:10 79 14 95 06/17/23 21:00 86 15 97 06/17/23 20:52 136/80 06/17/23 20:52 63 17 92 06/17/23 20:50 79 20 95 06/17/23 20:40 74 21 93 06/17/23 20:36 36.5 C 06/17/23 20:30 83 15 95 06/17/23 20:20 66 16 96 06/17/23 20:10 84 16 98 06/17/23 20:00 86 16 97 06/17/23 19:52 119/65 06/17/23 19:52 79 15 96 06/17/23 19:50 85 13 98 06/17/23 19:40 84 13 97 06/17/23 19:30 97 H 13 100 Laboratory Results 06/18/23 04:35 06/18/23 04:35 Coding Level of Care Code 35468 SUB INP/OBS CARE 3/50MIN Diagnoses Abdominal aortic aneurysm I71.40 Hip pain M25.559 Opioid dependence F11.20 Tobacco dependence F17.200 Hyperlipidemia E78.5 Myocardial infarct, old I25.2 CVA (cerebral vascular accident) I63.9 Chronic pain G89.29 Hypertension I10
--- NOTE | 2023-06-18 08:05 | Operative Report ---
Post Operative Report Pre & Post Diagnosis Operation Date: 06/17/23 10:10 Pre-Op Diagnosis: Abdominal Aortic Aneurysm, Iliac Artery Aneurysm Post-Op Diagnosis: Abdominal Aortic Aneurysm, Iliac Artery Aneurysm I identified the patient and participated in the time-out.: Yes Procedure Operation Date: 06/17/23 10:10 Actual Procedures p Percutaneous Endovascular Repair of Abdominal Aortic Aneurysm and Right Iliac Branch Artery Device, Ultrasound Localization of Bilateral Femoral Arteries, Mechanical Closure of Bilateral Femoral Arteries(Bilateral) - José Miguel Watson MD Surgeon José Miguel Watson MD [employer] Sql Developer Flako,PAC Estimated Blood Loss 100 Findings Consistent with Post-Op Diagnosis Specimens none Anesthesia Type General Complications none Disposition Accompanied Patient To Recovery: No Disposition: Recovery Room Indications This is a 73-year-old gentleman who has an enlarging aortoiliac aneurysm. Endovascular repair was recommended with a iliac branch device along with a aortic endograft. I have discussed the risks options and benefits of the procedure with the patient. The patient understands the risks options and benefits and agrees to the procedure. Description of Procedure The patient was brought to the OR and placed in supine position. Patient was intubated and general anesthesia was accomplished. A safety timeout was performed to identify patient's name, date of and the correct procedure. Abdomen and groins were prepped and draped in sterile fashion. Ultrasound guided percutaneous access of the right groin was performed. The right common femoral artery was patent. A percutaneous puncture was made in the right common femoral artery using ultrasound. The depth finder for the Manta device was used to measure the depth of the puncture. It was found to be 2 cm. The depth finder was removed and the 8 [place] sheath inserted. We turned our attention to the right side and we similarly accessed the left common femoral artery. The left common femoral artery was patent. Using ultrasound left common femoral artery was punctured. The depth finder was used to measure the depth of the puncture of the left side and also found to be 2 cm from the skin edge. This was removed and 8 [place] sheath was inserted. Patient was heparinized with 8000 of IV heparin. Through the right groin, we advanced a soft Glidewire followed by a Kumpe catheter. The wire then was exchanged for a stiff Tg wire. We then cannulated the aorta from the left side using 035 Glidewire and a Kumpe catheter. Once this was placed in the super renal aorta the wire was exchanged to a Tg wire.. We then upsized our access on the right side to a 12 [place] dry seal sheath. The left groin sheath was then exchanged to a 12 [place] dry seal sheath. The sheaths were advanced all the way up in the aortic bifurcation. We then inserted a snare through the left side. An 035 wire was inserted through the right sheath. It was snared and brought out through the left side. Using this as a real the 12 [place] sheath was advanced to the right common iliac artery. We then injected through the sheath showing the iliac aneurysm on the right side. On the right side we inserted a 23 x 14/2 x 10 iliac branch device. It was placed in the good position and deployed. We then advanced a 12 [place] sheath into the body of the graft from the left side. We tried to cannulate the internal iliac but was unsuccessful we could put a wire through we cannot advance any catheters. We then tried to use a 6 mm balloon to dilate the origin which appeared to be stenotic once dilated were able to advance the wire further into the internal iliac as well as the catheter. Once the catheter was in the internal iliac we exchanged to a more stiffer wire. We then inserted a 12 x 7 internal iliac limb and deployed it into the right internal iliac artery. Once this was deployed we dilated this limb with a 12 mm balloon. We then used a mob balloon to secure the distal limb of the external iliac. We then addressed aortic aneurysm. The 12 [place] sheath was pulled back over to the left side and the wire advanced up into the aorta suprarenal lead. A marker pig was inserted to the left groin. Aortography was performed. The level of the renal arteries were marked on the screen. This showed patency of both renal arteries and a acceptable neck for deployment of the graft. We advanced the device ([place] excluder conformable 26 mm x 14.5 mm x 12 cm) through the left sheath. The shaft of the graft was then deployed. An aortogram was performed. Both renal arteries were visualized just above the top of the deployed graft. Aortogram confirmed good location of the proximal end of the graft. The hooks were then deployed. Cannulation of the gate was then accomplished using an 035 glidewire and a Kumpke catheter. The wire spun easily in the neck of the graft. The 035 Glidewire was removed and a Tg wire was reinserted. A marker pigtail was then inserted over the [place] wire. The 12 [place] sheath was then pulled down into the external iliac on the right side. We reinserted a 12 [place] sheath dilator and advanced the sheath into the gate of the graft. Prior to inserting the contralateral limb we deployed the ipsilateral limb to complete the deployment of the graft. The device was then removed from the left groin. We then inserted a 27 x 10 iliac limb bridge. The 12 [place] sheath was then pulled down to below the level of the limb bridge. Contralateral limb was then deployed without difficulty. The 18 [place] sheath on the right side was then pulled down into the pelvis. Hand-injection was then performed to george where the bifurcation of the common iliac artery was. We then chose a 18 x 9-1/2 iliac limb extension. The graft was advanced to the 18 [place] sheath. It was deployed with the distal end falling just above the iliac bifurcation. The mob balloon was then inserted through the right sheath. The proximal attachment site, the gate and the distal attachment site were ballooned with the mob balloon. The balloon was then removed. Was then inserted the balloon through the left side 18 [place] sheath and then dilated the overlap of the limbs and the distal attachment site of the right limb. The balloon was then removed. The pigtail was then inserted through the left side to above the renal arteries. A final arteriogram was then performed which showed no evidence of a type I endoleak. Graft showed no evidence of narrowing throughout. An 035 Glidewire was then reinserted into the pigtail and the pigtail removed. The 12 [place] sheath was then pulled and a 14 [place] Manta device was inserted. This was deployed without difficulty. No bleeding was noted after deployment. The right groin sheath was then also pulled. An 18 [place] Manta device was inserted and deployed. No evidence of bleeding was seen on the right side either. Sterile dressings were applied to the wounds.The patient left the operation room in satisfactory condition and tolerated the procedure well. All needle and sponge counts were correct at the end of the procedure. Margarita Hinojosa Pac assisted due to lack of resident availability and was necessary for positioning, draping, retraction, wound closure deep layers, subcutaneous tissue, and skin closure and was necessary for assisting with the case. I attest to the content of the Intraoperative Record and any orders documented therein. Any exceptions are noted below.
[2023-06-18] MEDS: CEROVITE ADV FORMULA TAB PO SCH (08:21)
[2023-06-18] MEDS: METOPROLOL TARTRATE 50 MG TAB PO SCH (08:21)
[2023-06-18] MEDS: lisinopril 20 MG TAB PO SCH (08:21)
[2023-06-18] MEDS: ATORVASTATIN 20 MG TAB PO SCH (08:21)
[2023-06-18] MEDS: POTASSIUM CHLORIDE CRTAB 20 MEQ TABCR PO STA (08:23)
[2023-06-18] MEDS: MAGNESIUM SULFATE / D5W 1 GM/100 ML BAG IV SCH (08:24)
[2023-06-18 09:49] LABS: INR 1.2 (0.9-1.1); Prothrombin Time 13.3 Seconds (9.0-12.0)
--- NOTE | 2023-06-18 13:13 | Surgery Progress Note ---
Date of Service June 18, 2023 Assessment & Plan (1) Status post endovascular aneurysm repair: Plan: Doing well post op. Not out of bed yet today. Will transfer to floor. Will need to get up and ambulate today. (2) Acute blood loss anemia: Plan: Hgb decreased from pre op. He is asymptomatic. This is secondary to surgery blood loss and hydration. Will repeat h/h in am. Admission and Anticipated Discharge Date Admission Date: June 17, 2023 Subjective Patient without complaints of pain. Physical Exam Constitutional: WD/WN, vitals as above Respiratory: normal respiratory effort, lungs clear to auscultation Cardiovascular: RRR, no murmur, no edema Vessels: femoral pulses present Gastrointestinal (Abdomen): Inspection/Auscultation: abdomen normal to inspection; abdomen not distended Percussion/Palpation: abdomen soft; abdomen nontender Skin: + incision (puncture sites clean and dry ) Neurologic: CN's II-XI intact bilaterally and moves all extremities Psychiatric: Orientation: alert and oriented x 3 Results & Data Vital Signs (Past 12 Hours) Vital Signs Temp Pulse Resp BP Pulse Ox 06/18/23 11:36 36.9 C 06/18/23 11:30 83 19 97 06/18/23 11:20 73 15 98 06/18/23 11:10 77 19 98 06/18/23 11:00 67 19 97 06/18/23 10:53 137/78 06/18/23 10:53 68 18 99 06/18/23 10:50 67 24 98 06/18/23 10:40 72 20 97 06/18/23 10:30 70 20 97 06/18/23 10:20 70 21 96 06/18/23 10:10 85 19 98 06/18/23 10:00 73 20 97 06/18/23 09:52 71 19 06/18/23 09:52 135/80 06/18/23 09:50 73 19 96 06/18/23 09:40 72 19 97 06/18/23 09:30 73 18 96 06/18/23 09:20 86 19 96 06/18/23 09:10 83 21 95 06/18/23 09:00 90 18 97 06/18/23 08:52 81 21 89 L 06/18/23 08:52 138/86 06/18/23 08:50 87 19 96 06/18/23 08:40 84 25 H 96 06/18/23 08:30 83 22 94 06/18/23 08:20 83 20 95 06/18/23 08:10 86 20 95 06/18/23 08:00 81 03 08:00 94 H 22 96 06/18/23 07:52 149/76 H 06/18/23 07:52 85 19 96 06/18/23 07:50 102 H 26 H 94 06/18/23 07:40 96 H 15 95 06/18/23 07:30 104 H 22 97 06/18/23 07:20 77 19 96 06/18/23 07:17 36.9 C 06/18/23 07:10 87 12 95 06/18/23 07:00 82 21 96 06/18/23 06:53 150/69 H 06/18/23 06:53 86 23 94 06/18/23 06:50 72 20 96 06/18/23 06:40 80 18 95 06/18/23 06:30 80 20 95 06/18/23 06:20 82 21 96 06/18/23 06:10 77 19 95 06/18/23 06:00 89 21 94 06/18/23 05:52 87 20 92 06/18/23 05:52 126/85 06/18/23 05:50 79 18 96 06/18/23 05:40 88 20 95 06/18/23 05:30 84 17 96 06/18/23 05:20 76 18 94 06/18/23 05:10 75 18 95 06/18/23 05:00 72 17 94 06/18/23 04:53 75 16 95 06/18/23 04:53 146/80 H 06/18/23 04:50 78 16 94 06/18/23 04:40 77 17 95 06/18/23 04:30 79 16 95 06/18/23 04:20 70 20 96 06/18/23 04:10 94 H 24 94 06/18/23 04:00 95 H 22 97 06/18/23 03:50 89 25 H 98 06/18/23 03:40 75 18 95 24 03:30 76 17 94 06/18/23 03:20 73 20 95 24 03:10 78 21 96 06/18/23 03:00 69 18 96 03/28/24 02:53 163/65 H 06/18/23 02:53 69 21 96 06/18/23 02:50 66 18 95 06/18/23 02:40 68 19 95 06/18/23 02:30 70 20 96 06/18/23 02:20 76 18 95 06/18/23 02:12 71 20 96 06/18/23 02:00 74 17 94 06/18/23 01:53 143/81 H 06/18/23 01:53 86 16 94 06/18/23 01:50 73 18 96 06/18/23 01:40 78 17 93 06/18/23 01:30 72 17 95 06/18/23 01:20 85 22 97 06/18/23 01:10 75 18 96
[2023-06-19] MEDS: DOCUSATE SODIUM 100 MG CAP PO SCH (01:23)
[2023-06-19 06:18] LABS: Basophils # (auto) 0.03 K/uL (0.00-0.20); Basophils % (auto) 0.3 %; Eosinophils # (auto) 0.02 K/uL (0.00-0.50); Eosinophils % (auto) 0.2 %; Hematocrit (blood only) 29.1 % (42.0-52.0); Hemoglobin 9.9 g/dl (14.0-18.0); Immature Granulocytes # (auto) 0.04 K/uL (0.01-0.20); Immature Granulocytes % (auto) 0.4 %; Lymphocytes # (auto) 1.98 K/uL (1.20-3.40); Lymphocytes % (auto) 21.1 %; Mean Corpuscular Volume 94.2 fL (80.0-100.0); Mean Platelet Volume 10.7 fL (9.4-12.4); Monocytes # (auto) 1.02 K/uL (0.11-0.59); Monocytes % (auto) 10.9 %; Neutrophils # (auto) 6.31 K/uL (1.40-6.50); Neutrophils % (auto) 67.1 %; Platelet Count 70 K/uL (130-400); RDW Standard Deviation 52.3 fL (36.4-46.3); Red Blood Count 3.09 M/uL (4.70-6.10)
[2023-06-19 06:21] LABS: INR 1.5 (0.9-1.1); Prothrombin Time 15.9 Seconds (9.0-12.0)
[2023-06-19 06:34] LABS: BUN Creatinine Ratio 13.4 (10-20); Calcium 8.3 mg/dl (8.6-10.3); Creatinine Clr Calc Pharmacy 69.8 ml/min; Est GFR (African American) 88.1 ml/min; Est GFR (Non-African American) 76.1 ml/min; Potassium 3.9 mmol/L (3.5-5.1)
[2023-06-19] MEDS: POLYETHYLENE (MIRALAX) 17 GM PACK PO SCH (08:26)
[2023-06-19] MEDS ORDERED: HYDROCORTISONE SOD IV STA (11:01)
[2023-06-19] MEDS: HYDROCORTISONE SOD 100 MG in SYRINGE 0 ML IV STA (11:23)
[2023-06-19] MEDS: OPTIRAY 320 100ml IV ONE (13:11)
--- NOTE | 2023-06-19 13:25 | Surgery Progress Note ---
Date of Service June 19, 2023 Assessment & Plan (1) Status post endovascular aneurysm repair: Plan: Patient has developed slight abdominal and back pain. He does have back pain at home. He takes Morphine for this. CTA showed a nicely placed aortoiliac endograft with a right IBD. There appears to be a small pelvic hematoma most likely from the procedure. (2) Acute blood loss anemia: Plan: Hgb down to 9.9. He is asx. Most likely blood loss from surgery and hydration. Will follow hgb at this time. (3) Retroperitoneal hematoma: Plan: cta showed a retroperitoneal hematoma on the right side. this is most likely from manipulation to advance the IBD limb into the internal illiac or from the right groin puncture which did have some bleeding. No active bleeding seen at this time Admission and Anticipated Discharge Date Admission Date: June 17, 2023 Subjective Patient complaining of left lower quadrant abdominal pain and back pain. He doesn't want to take pain medication due to making him constipated. He claims he does have back pain and occasional abdominal pain at home. He takes morphine IR at home. Physical Exam Constitutional: WD/WN, vitals as above Respiratory: normal respiratory effort and + respiratory distress Auscultation: lungs clear to auscultation bilaterally Cardiovascular: RRR, no murmur, no edema Vessels: femoral pulses present Extremities: normal capillary refill Gastrointestinal (Abdomen): Inspection/Auscultation: abdomen normal to inspection; abdomen not distended Percussion/Palpation: + abdomen tender (slight tenderness left lower quadrant) and abdomen soft; no guarding and abdomen not rigid Neurologic: CN's II-XI intact bilaterally and moves all extremities Psychiatric: Orientation: alert and oriented x 3 Results & Data Vital Signs (Past 12 Hours) Vital Signs Temp Pulse Resp BP BP Pulse Ox O2 Del Method 06/19/23 10:43 36.6 C 73 16 124/74 97 Room Air 06/19/23 07:12 36.8 C 88 20 135/79 100 Room Air
--- NOTE | 2023-06-19 14:06 | CT Scan Report ---
CT ANGIOGRAM OF THE ABDOMEN AND PELVIS COMBO CLINICAL HISTORY: Generalized abdominal pain. COMPARISON STUDY: Abdominal CT dated 05/06/2023. TECHNIQUE: Before and following the IV administration of 94 cc of Optiray 320, CT angiogram of the ab domen and pelvis was performed from the lung bases the proximal femora using the stent graft protocol . Images are reviewed in the axial, sagittal, and coronal planes. 3-D MIPS images are created and ass essed. IV contrast was administered without complication. A dose lowering technique was utilized adh ering to the principles of ALARA. CT DOSE: 2285.25 mGy.cm FINDINGS: Lower chest: The heart is enlarged and without pericardial effusion. The coronary arteries are densel y calcified. There is diminished attenuation of the cardiac blood pool as compared to myocardium sugg esting anemia. Advanced emphysematous changes noted. There is bibasilar scarring/atelectasis. No airs pace consolidation or pleural effusion is seen. Liver: The contrast-enhanced liver is normal in size, contour, and attenuation. There is no intrahepa tic biliary ductal dilatation. The main portal veins appear patent. Gallbladder: Unremarkable. Spleen: Normal in size and attenuation. Pancreas: Unremarkable. Adrenal glands: Unremarkable. Kidneys: The contrast enhanced kidneys are normal in size and without hydronephrosis. There is a punc olmstead nonobstructing right renal calculus seen on the unenhanced series. The kidneys enhance and excre te symmetrically. A 3.9 cm cyst arises from the right upper pole. No Abdominal aorta and iliac arteries: There is advanced atherosclerotic calcification of the abdominal aorta. There has been aortobiiliac stent graft repair of an infrarenal abdominal aortic aneurysm. The stent graft is widely patent. The residual aneurysm sac measures 5.2 x 5.5 cm (AP x transverse). The re is a type II endoleak, best seen on axial image 106 with a delayed series. This arises from a lumb ar vessel. There are foci of gas within the aneurysm sac. This is nonspecific and may be related to r ecent instrumentation. There is advanced atherosclerotic calcification of the iliac arteries. The adalberto ac vessels are patent bilaterally. 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 Major branches of the abdominal aorta: There is a common origin of the celiac trunk and the superior mesenteric artery. These vessels are patent noting advanced atherosclerotic plaque and irregularity. 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 This is reconstituted via retrog rade flow as seen on axial image #184. The splenic artery is patent. Hepatic arterial anatomy is conv entional. Single bilateral renal arteries are widely patent. Bowel: There is moderate colonic diverticulosis without CT evidence of acute diverticulitis. No bowel obstruction is seen. The appendix is well-visualized and normal. Peritoneum/retroperitoneum: There is no intraperitoneal free air or abdominal ascites. There is retro peritoneal hemorrhage seen tracking along the right psoas musculature and along the right paracolic g utter into the pelvis. A large hematoma in the right pelvis along the course of the iliac vessels on image #270 measures approximately 6.5 x 8 x 6.5 cm. No active extravasation is clearly identified. Th e hematoma effaces the right iliac vein. Lymphadenopathy: None. Pelvic viscera: The prostate gland is enlarged and heterogeneous. The bladder is decompressed, and th ere are foci of extraluminal gas. The bladder wall is thickened/trabeculated indicating chronic outle t obstruction. There is nonspecific presacral edema. Soft tissue induration is seen within the groin bilaterally. Skeletal structures: The skeletal structures are osteopenic. Advanced spondylotic and postsurgical ch junior is noted in the lumbar spine. No lytic or blastic lesions are seen. IMPRESSION: 1. Cardiomegaly and emphysema. 2. The patient is status post aortobiiliac stent graft repair of an infrarenal abdominal aortic aneur ysm as above. The residual aneurysm sac measures 5.2 x 5.5 cm. Gas within the aneurysm sac is likely related to recent surgery. 3. There's a type II endoleak related to a lumbar vessel. 4. There is a [id number] volume of retroperitoneal hemorrhage, as well as a large hematoma in the right pelvis along the course of the iliac vessels. No active extravasation is identified at the time of examination. 5. 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 The vessel is reconstituted v ia retrograde flow. 6. The remaining major branches of the abdominal aorta are patent. 7. Colonic diverticulosis without CT evidence of acute diverticulitis. 8. Additional findings as above. Findings were discussed with Dr. Watson at the time of interpretation. ACT 112: Negative or not required by law. Electronically signed by: Yared Barreto M.D. 06/19/2023 2:05 PM
[2023-06-19] MEDS: diphenhydrAMINE Capsule 25 MG CAP PO SCH (20:26)
[2023-06-20 05:58] LABS: Basophils # (auto) 0.01 K/uL (0.00-0.20); Basophils % (auto) 0.1 %; Eosinophils # (auto) 0.01 K/uL (0.00-0.50); Eosinophils % (auto) 0.1 %; Hematocrit (blood only) 28.3 % (42.0-52.0); Hemoglobin 9.6 g/dl (14.0-18.0); Immature Granulocytes # (auto) 0.04 K/uL (0.01-0.20); Immature Granulocytes % (auto) 0.5 %; Lymphocytes # (auto) 1.43 K/uL (1.20-3.40); Lymphocytes % (auto) 16.6 %; Mean Corpuscular Hemoglobin 32.1 pg (25.0-34.0); Mean Corpuscular Hgb Conc 33.9 g/dL (32.0-36.0); Mean Corpuscular Volume 94.6 fL (80.0-100.0); Mean Platelet Volume 11.1 fL (9.4-12.4); Monocytes # (auto) 0.86 K/uL (0.11-0.59); Neutrophils # (auto) 6.24 K/uL (1.40-6.50); Neutrophils % (auto) 72.7 %; Platelet Count 75 K/uL (130-400); RDW Coefficient of Variation 14.8 % (11.5-14.5); RDW Standard Deviation 51.8 fL (36.4-46.3); Red Blood Count 2.99 M/uL (4.70-6.10); White Blood Count 8.59 K/ul (4.8-10.8)
[2023-06-20 06:13] LABS: BUN Creatinine Ratio 16.7 (10-20); Calcium 8.8 mg/dl (8.6-10.3); Creatinine Clr Calc Pharmacy 75.2 ml/min; Est GFR (African American) 96.5 ml/min; Est GFR (Non-African American) 83.3 ml/min; Potassium 3.5 mmol/L (3.5-5.1)
[2023-06-20 06:24] LABS: Prothrombin Time 20.5 Seconds (9.0-12.0)
--- NOTE | 2023-06-20 09:40 | Surgery Progress Note ---
Date of Service June 20, 2023 Assessment & Plan (1) Status post endovascular aneurysm repair: Plan: Doing well. Abdomen soft. Will still have some back and lower abdominal pain while the hematoma resolves. (2) Acute blood loss anemia: Plan: Hgb stable. No active bleeding Admission and Anticipated Discharge Date Admission Date: June 17, 2023 Subjective Patient claims to be feeling better today. Would like to go home. Physical Exam Constitutional: WD/WN, vitals as above Respiratory: normal respiratory effort, lungs clear to auscultation normal respiratory effort and + respiratory distress Auscultation: lungs clear to auscultation bilaterally Cardiovascular: RRR, no murmur, no edema Vessels: normal peripheral pulses and femoral pulses present Extremities: normal capillary refill Gastrointestinal (Abdomen): normal bowel sounds, soft, nontender, no hepatosplenomegaly Inspection/Auscultation: abdomen normal to inspection; abdomen not distended Percussion/Palpation: abdomen soft and + abdominal aortic enlargement; abdomen nontender (slight tenderness left lower quadrant), no guarding and abdomen not rigid Skin: + incision (puncture sites clean and dry ) Neurologic: CN's II-XI intact bilaterally and moves all extremities Psychiatric: Orientation: alert and oriented x 3 Results & Data Vital Signs (Past 12 Hours) Vital Signs Temp Pulse Resp BP Pulse Ox O2 Del Method 06/20/23 07:21 36.4 C L 88 16 155/80 H 99 Room Air 06/19/23 21:47 36.7 C 68 18 128/83 96 Room Air
[2023-06-20] MEDS ORDERED: WARFARIN SOD 2.5 MG TAB PO SCH (16:00)
--- NOTE | 2023-06-23 10:28 | Discharge Summary ---
Date of Service June 23, 2023 Admission HPI Per Admitting Provider Mr. Schofield is a 73-year-old gentleman who we have seen in the past for abdominal aortic aneurysm as well as iliac aneurysms. He is doing well at this time he is ambulating without any claudication. He has no symptoms of cerebrovascular sufficiency he has no abdominal complaints. His ultrasound showed a significant increase in size. 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 They are amenable to endoleak vascular repair Admission Exam Per Admitting Provider Constitutional: WD/WN, vitals as above Respiratory: normal respiratory effort, lungs clear to auscultation Cardiovascular: RRR, no murmur, no edema Vessels: normal peripheral pulses Extremities: normal capillary refill Gastrointestinal (Abdomen): normal bowel sounds, soft, nontender, no hepatosplenomegaly Percussion/Palpation: + abdominal aortic enlargement Neurologic: CN's II-XI intact bilaterally and moves all extremities Psychiatric: Orientation: alert and oriented x 3 Principal Diagnosis 1. s/p PEVAR with R iliac branch device 2. AAA 3. R iliac art aneurysm Discharge Exam Constitutional WD/WN, vitals as above Respiratory normal respiratory effort, lungs clear to auscultation normal respiratory effort and + respiratory distress Auscultation: lungs clear to auscultation bilaterally Cardiovascular RRR, no murmur, no edema Vessels: normal peripheral pulses and femoral pulses present Extremities: normal capillary refill Gastrointestinal (Abdomen) normal bowel sounds, soft, nontender, no hepatosplenomegaly Inspection/Auscultation: abdomen normal to inspection; abdomen not distended Percussion/Palpation: abdomen soft and + abdominal aortic enlargement; abdomen nontender (slight tenderness left lower quadrant), no guarding and abdomen not rigid Skin + incision (puncture sites clean and dry) Neurologic CN's II-XI intact bilaterally and moves all extremities Psychiatric Orientation: alert and oriented x 3 Discharge Data Allergies Allergy/AdvReac Type Severity Reaction Status Date / Time iodine Allergy Intermediate Hives/swell Verified 06/17/23 08:13 ing shellfish derived Allergy Intermediate Hives/swell Verified 06/17/23 08:13 ing carbamazepine Allergy Unknown unsure Verified 06/17/23 08:13 Consultations 06/17/23 15:53 Consult Biological Aide Routine Procedures Performed Operation Date: 06/17/23 10:10 Actual Procedures p Percutaneous Endovascular Repair of Abdominal Aortic Aneurysm and Right Iliac Branch Artery Device, Ultrasound Localization of Bilateral Femoral Arteries, Mechanical Closure of Bilateral Femoral Arteries(Bilateral) - José Miguel Watson MD Ordered Studies 06/17/23 06:39 sono, invasive monitoring [US point of care ultrasound] Urgent 06/17/23 07:12 EV aorto bi iliac repair Routine US EV guide vascular access Routine 06/19/23 10:39 CT angio abd pelvis wo/w con Stat Hospital Course (1) Status post endovascular aneurysm repair: Doing well. Abdomen soft. Will still have some back and lower abdominal pain while the hematoma resolves.ok for d/c home (2) Acute blood loss anemia: Hgb stable. No active bleeding Total Time Total Time Spent Total Time Spent (In Minutes): 0 Discharge Plan Discharge Items Patient Disposition: Home - Self-Care Reason For Visit: AORTOILIAC ANEURYSMS Discharge Diagnosis: Abdominal aortoiliac aneurysm Activity: Per Instructions section Non-emergency contact: Surgeon Call non-emergency contact if: your temperature is above 101.5, your wound has increased redness, your wound has increased drainage and your wound pain has increased Follow-up/Referrals: Fabián Man CRNP [Primary Care Provider] - Diet: Heart Healthy Addtl Attending Provider Instructions: SPECIAL CARE INSTRUCTIONS: Medications: * Continue to take your medications as directed. Incision/Puncture Site Care: * You will have an incision or puncture in each of your groins. Liquid glue will be used to seal your incisions/puncture site. This will lift off as the incisions/puncture sites heal. * If Liquid glue is not used, there will be small dressings covering your incisions. After you get home, you may remove the dressings and shower - allowing the warm soapy water to run over it. * Be sure to dry the sites well and keep them dry. * DO NOT SOAK IN A TUB/POOL/etc. UNTIL ALL SURGICAL SITES ARE HEALED. DO NOT REMOVE THE GLUE UNTIL THE INCISIONS HEAL. Restrictions: * Limit yourself to minister assistant activity for the first week. * You may walk and go up and down steps. * Avoid excessive bending or movement at the level of the incisions or punctures. Risks and Possible Complications: * Infection/Drainage/Bleeding - Drainage or bleeding from the incisions/puncture site should be minimal. If you have excessive bleeding or drainage, call our office ([phone]) right away. * Pain/Numbness - You may experience some mild pain or soreness at your incision sites. You may also have some numbness around the incisions or into the insides of your thighs. Bruising is normal and should resolve within 2 weeks. * Changes in Appetite or Bowel Habits - Mostly related to anesthesia and pain medication, some patients have reported decreased appetite and/or problems with constipation. These symptoms usually improve over a few weeks. Remembering to take an qzds-hkd-sparass stool softener, as directed, will help you to avoid constipation. Call our office and seek emergent treatment if you develop: * Fever or chills * Have a temperature greater than 101 degrees F * Any redness or purulent drainage from your incisions or punctures * Severe abdominal, chest or back pain SKIN IRRITATION: * You may experience some redness and/or swelling in the area where radiation was administered. If any skin irritation occurs, please contact your family physician. You will be receiving a call from the Vascular Surgery Nurse after you are discharged. FOLLOW UP VISIT: It is important for you to keep your follow up appointments with your medical provider. Keep any scheduled doctor appointments. Call [phone] to schedule a follow up appointment if one not already scheduled. Pending Studies at Discharge: No Stand-Alone Forms: My [facility], Pain - Opioid Pain Management, Smoking Cessation Medications and DC Order Prescriptions: New tramadol 50 mg tablet 50 mg PO Q6H PRN (Reason: pain) Qty: 20 0RF Continued polyethylene glycol 3350 [Miralax] 17 gram powder in packet 17 gm PO 3XWK diclofenac sodium [Voltaren] 1 % gel 2 gm TOP QID Centrum Silver Men 300-600-300 mcg tablet 1 tab PO DAILY Linzess 72 mcg capsule See Rx Instructions PO HS Rx Instructions: dose unknown; orally at bedtime; Medical Marijuana (CBD) oil 1 dose Inhalation TID PRN (Reason: pain) Fiber Gummies 2 gram tablet,chewable 2 g PO DAILY morphine 15 mg tablet 15 mg PO Q4H Qty: 120 0RF Rx Instructions: 0.5-1 tablet PO Q4 hours PRN pain warfarin 10 mg tablet See Rx Instructions PO UD Qty: 90 1RF Rx Instructions: 12.5mg q Tu Sa, 10mg x 5 days per [facility] PO use as directed; warfarin 2.5 mg tablet See Rx Instructions PO UD Qty: 30 1RF Rx Instructions: 12.5mg q Tu Sa, 10mg x 5 days per [facility] PO use as directed; atorvastatin 20 mg tablet 20 mg PO DAILY Qty: 90 3RF Patient Comments: qam lisinopril 20 mg tablet 20 mg PO DAILY Qty: 90 3RF Patient Comments: QPM metoprolol tartrate [Lopressor] 50 mg tablet 50 mg PO DAILY Qty: 90 2RF Patient Comments: QAM Discharge Orders: Discharge Order (Routine); Ordered 06/20/23 Ordered By: José Miguel Jackson/Other Patient Handouts: AAA Surg Post Op, Endovascular Repair of AAA Admission Data Admit Date/Time: 06/17/23 14:19 Attending Provider: José Miguel Watson Admit Provider: José Miguel Watson Primary Care Provider: Fabián Man Other Providers: Maurice Velazquez; David Tran; Jorge Luis Ferrari; Perry Garza; Aman Best Muqueet; Brezovic, Nathan S.; Marci Hermosillo; Leona Lacey; Jarrett Lord; Srinivas Angel; Opal Storm Other Interventions: Discharge Summary Assessment (RN) Last Done: 06/20/23 09:55
--- NOTE | 2023-06-24 08:28 | Coding Query ---
CODING QUERY To promote full compliance with coding requirements relating to patient care, provider participation is requested in all cases of manufacturer representative uncertainty. Please assist us with the question(s) below: Coding Question(s): Patient had AAA/ilac aneurysm endovascular repair. DS documented postop retroperitoneal hematoma. Please check below the phrase that describes the hematoma. Thank you. Justen Rueda [facility] Physician's Response(s): x__ The postoperative retroperitoneal hematoma is a complication of the procedure The postoperative retroperitoneal hematoma is not a complication of the procedure Other: please document: Principal Diagnosis: "that condition established after study, to be chiefly responsible for occasioning the admission of the patient to the hospital for care." Co-Existing Principal Diagnosis: "when two or more diagnoses equally meet the criteria for principal diagnosis as determined by the circumstances of admission, diagnostic work up, and/or therapy provided, and the Alphabetic Index, Tabular List, or another coding guideline does not provide sequencing direction, any one of the diagnoses may be sequenced first." "When the physician has documented what appears to be a current diagnosis in the body of the record, but has not included the diagnosis in the final diagnostic statement, the physician should be asked whether the diagnosis should be added." (Source Coding Clinic 2 QTR90. p3-4) FREDRICK
== END 2023-06-20 10:43 | disposition home or self-care (01) | DRG 269 ==
LOC: ASU 07:37 → 1E 10:01 → 3N 06-18 15:08